=== PATIENT | female | born 1965 | race Caucasian/White ===

== ENCOUNTER 2019-02-11 14:52 | Outpatient (CLI) | payer MEDICAID ==
[~2019-02-11 14:52] MED LIST: HYDR-3241 PO
== END 2019-02-11 23:59 | disposition home or self-care (01) ==
LOC: CFH 14:52
PROVIDERS: ATTEND Internal Medicine Cardiovascular Disease
DX: I70.90 Unspecified atherosclerosis (principal); E78.2 Mixed hyperlipidemia; Z82.49 Family history of ischemic heart disease and other diseases of the circulatory system
CPT/HCPCS: 75571